=== PATIENT | female | born 1935 | race Caucasian/White ===

== ENCOUNTER 2016-10-30 07:41 | Emergency (ER) | payer OTHER ==
[~2016-10-30] VITALS: Ht 160 cm; Wt 90.7 kg
[~2016-10-30 07:41] MED LIST: ASPIR 8181 MG PO; ASPIRIN81 M1 PO; BACTRIM DS 8001 TA1 PO; CALTRATE 600 +1 TA1 PO; CEFADROXIL500 M1 PO; CENTRUM SILVER1 TA1 PO; CHROMIUM PICOLI1 TAB PO; CYCLOBENZAPRINE5 MG PO; FAMOTIDINE PO; GLEEVEC400 MG PO; GLUCOSAMINE500 MG PO; HUMALOG100 U/ML SC; HYDROCHLOROTH12.5 M2 PO; HYZAAR 12.5 MG-1 TA2 PO; HYZAAR 12.5 MG-1 TAB PO; KEFLEX500 MG PO; LANTUS100 U/ML SC; LASIX20 MG PO; LEVEMIR10 ML SC; LOSARTAN POTAS100 M1 PO; LOSARTAN POTASS1 TA6 PO; LOVASTATIN40 MG PO; MEVACOR20 MG PO; MICRO-K 1010 MEQ PO; NAPROSYN375 MG PO; ONGLYZA; ONGLYZA5 MG PO; POTASSIUM20 MEQ PO; PRILOSEC20 M2 PO; SYNTHROID,LEVO75 MCG PO; TRAMADOL50 MG PO; TYLENOL ARTHRI650 MG PO; Tobradex 0.3-0.15 ML OPH; VESICARE10 MG PO; ZETIA10 MG PO
[2016-10-30 08:22] LABS: BASO # 0.1 10*3/uL (0.0-0.1); BASO % 1.2 % (0.0-1.0); EOS # 0.2 10*3/uL (0.0-0.4); EOS % 5.6 % (1.0-4.0); HEMATOCRIT 30.9 % (37.0-47.0); HEMOGLOBIN 9.9 g/dl (12.0-16.0); LYMPH # 1.3 10*3/uL (1.3-4.4); LYMPH % 30.6 % (27.0-41.0); MEAN CELL VOLUME 88.8 fl (81.0-99.0); MEAN CORPUSCULAR HGB 28.4 pg (27.0-31.0); MEAN PLATELET VOLUME 11.5 fl (9.6-12.3); MONO # 0.4 10*3/uL (0.1-1.0); MONO % 10.5 % (3.0-9.0); NEUT # 2.1 10*3/uL (2.3-7.9); NEUT % 51.9 % (47.0-73.0); PLATELET COUNT AUTOMATED 208 10*3/uL (130-400); RED BLOOD COUNT 3.48 10*6/uL (4.10-5.10); RED CELL DISTRI WIDTH 13.8 % (0-14.5); WHITE BLOOD COUNT 4.1 10*3/uL (4.8-10.8)
[2016-10-30 08:38] LABS: INTERNATIONAL NORM RATIO 0.9 (2.0-3.5); PROTHROMBIN TIME 9.6 SECONDS (9.0-12.4)
[2016-10-30 08:40] LABS: ALBUMIN 3.3 gm/dl (3.1-4.5); BILIRUBIN, TOTAL 0.3 mg/dl (0.2-1.0); POTASSIUM 3.4 mmol/L (3.5-5.1); TOTAL PROTEIN 6.1 gm/dL (6.4-8.2)
[2016-10-30] MEDS ORDERED: IBUPROFEN600 MG PO (13:18)
[2016-12-26] MEDS ORDERED: LOSARTAN POTASS1 TA5 PO (16:50)
[2016-12-26] MEDS ORDERED: LEVEMIR10 ML SC (16:51)
[2016-12-26] MEDS ORDERED: ASPIRIN81 M1 PO (16:52)
[2016-12-26] MEDS ORDERED: HYDROCODONE BIT1 T11 PO (16:55)
== END 2016-10-30 13:24 | disposition home or self-care (01) ==
LOC: ED 07:41
PROVIDERS: Emergency Medicine
DX: R07.89 Other chest pain (principal); M25.511 Pain in right shoulder; R51 Headache; E11.9 Type 2 diabetes mellitus without complications; I10 Essential (primary) hypertension; Z91.041 Radiographic dye allergy status; Z88.6 Allergy status to analgesic agent; Z79.899 Other long term (current) drug therapy; Z79.4 Long term (current) use of insulin

== ENCOUNTER 2017-01-09 16:09 | Emergency (ER) | payer OTHER ==
[~2017-01-09] VITALS: Wt 100.2 kg
[~2017-01-09 16:09] MED LIST changes: +HYDROCODONE BIT1 T11 PO; +IBUPROFEN600 MG PO; +LOSARTAN POTASS1 TA5 PO
[2017-01-09 17:16] LABS: BASO % 0.5 % (0.0-1.0); EOS % 0.5 % (1.0-4.0); HEMATOCRIT 29.5 % (37.0-47.0); HEMOGLOBIN 9.6 g/dl (12.0-16.0); LYMPH # 0.9 10*3/uL (1.3-4.4); MEAN CELL VOLUME 85.3 fl (81.0-99.0); MEAN CORPUSCULAR HGB 27.7 pg (27.0-31.0); MEAN CORPUSCULAR HGB CONC 32.5 g/dl (33.0-37.0); MEAN PLATELET VOLUME 9.8 fl (9.6-12.3); MONO # 0.6 10*3/uL (0.1-1.0); MONO % 9.7 % (3.0-9.0); NEUT # 4.8 10*3/uL (2.3-7.9); NEUT % 75.1 % (47.0-73.0); PLATELET COUNT AUTOMATED 230 10*3/uL (130-400); RED BLOOD COUNT 3.46 10*6/uL (4.10-5.10); RED CELL DISTRI WIDTH 15.9 % (0-14.5); WHITE BLOOD COUNT 6.4 10*3/uL (4.8-10.8)
[2017-01-09 17:33] LABS: ALBUMIN 3.3 gm/dl (3.1-4.5); BILIRUBIN, TOTAL 0.5 mg/dl (0.2-1.0); POTASSIUM 3.8 mmol/L (3.5-5.1); TOTAL PROTEIN 6.4 gm/dL (6.4-8.2)
[2017-01-09 19:37] LABS: BILIRUBIN NEGATIVE (NEGATIVE); BLOOD 3+ (NEGATIVE); CLARITY SL CLOUDY (CLEAR); COLOR YELLOW (YELLOW); GLUCOSE NEGATIVE (NEGATIVE); KETONE 1+ (NEGATIVE); LEUKO ESTERASE NEGATIVE (NEGATIVE); NITRITE NEGATIVE (NEGATIVE); PH 5.5 (5.0-9.0); PROTEIN TRACE (NEGATIVE)
[2017-01-09 19:50] LABS: BACTERIA TRACE; EPITHELIAL CELLS 20-25; RBC TNTC rbc/hpf (0-2)
[2017-01-09 19:51] LABS: URINE REFLEX COMMENT YES (NO); WBC 0-2 wbc/hpf (0-5)
[2017-01-09] MEDS ORDERED: ZOFRAN ODT4 MG SL (20:04)
== END 2017-01-09 20:30 | disposition home or self-care (01) ==
LOC: ED 16:09
PROVIDERS: Physician Assistant
DX: N20.1 Calculus of ureter (principal); Z90.49 Acquired absence of other specified parts of digestive tract; Z79.4 Long term (current) use of insulin; Z79.82 Long term (current) use of aspirin; Z88.6 Allergy status to analgesic agent; Z91.041 Radiographic dye allergy status

== ENCOUNTER → 2017-08-07 | Outpatient (CLI) | payer OTHER ==
[~2017-08-07] MED LIST changes: +ZOFRAN ODT4 MG SL
[2017-08-07 11:34] LABS: IRON 41 ug/dL (50-170); TOTAL IRON BINDING CAPACITY 385 ug/dl (250-450)
[2017-08-07 13:07] LABS: FERRITIN 12.4 ng/mL (10.0-291.0)
== END | disposition home or self-care (01) ==
LOC: LAB 10:43
PROVIDERS: Internal Medicine
DX: E13.9 Other specified diabetes mellitus without complications (principal); R89.9 Unspecified abnormal finding in specimens from other organs, systems and tissues

== ENCOUNTER → 2018-01-09 | Outpatient (CLI) | payer OTHER | END | disposition home or self-care (01) | LOC: RAD 14:18 | DX: S22.32XA Fracture of one rib, left side, initial encounter for closed fracture (principal); W19.XXXA Unspecified fall, initial encounter; X58.XXXA Exposure to other specified factors, initial encounter; Y93.89 Activity, other specified; Y92.89 Other specified places as the place of occurrence of the external cause; Y99.8 Other external cause status ==

== ENCOUNTER 2019-01-13 08:16 | Emergency (ER) | payer OTHER ==
[~2019-01-13] VITALS: Ht 160 cm; Wt 90.7 kg
--- NOTE | ~2019-01-13 | EKG ---
[place], [place] ELECTROCARDIOGRAM REPORT NAME: GEORGETTE JUDD UNIT #: [id number] ROOM: DOCTOR: EPIPHANY DRAFT REPORT BIRTHDATE: [birth year] [facility] Test Date: 2019-01-13 Test Time: 08:23:08 Pat Name: GEORGETTE JUDD Department: Room: Gender: F Room Service Food Server: Ximena Salcedo : 1935 Requested By: HARSH WILDE Order Number: [id number] Reading MD: Zahraa Dominique Measurements Intervals Andrew Rate: 65 P: 0 CA: 205 QRS: -22 QRSD: 91 T: 29 QT: 443 QTc: 461 Interpretive Statements Sinus rhythm Ventricular premature complex Borderline left axis deviation Anterior infarct, old No previous ECG available for comparison Electronically Signed On 01-13-2019 11:07:27 PDT by Zahraa Dominique CM:EKGRPT:ELECTROCARDIOGRAM REPORT [id number] HARSH TRAYLOR DRAFT REPORT HARSH WILDE MD
[~2019-01-13 08:16] MED LIST changes: +LEVEMIR100 UNIT/1 SC
[2019-01-13 08:36] LABS: EOS # 0.2 10*3/uL (0.0-0.4); EOS % 5.3 % (1.0-4.0); HEMATOCRIT 37.9 % (37.0-47.0); HEMOGLOBIN 12.5 g/dl (12.0-16.0); LYMPH # 2.1 10*3/uL (1.3-4.4); LYMPH % 52.1 % (27.0-41.0); MEAN CORPUSCULAR HGB 29.3 pg (27.0-31.0); MEAN PLATELET VOLUME 10.5 fl (9.6-12.3); MONO # 0.4 10*3/uL (0.1-1.0); MONO % 10.6 % (3.0-9.0); NEUT # 1.2 10*3/uL (2.3-7.9); NEUT % 30.7 % (47.0-73.0); PLATELET COUNT AUTOMATED 196 10*3/uL (130-400); RED BLOOD COUNT 4.26 10*6/uL (4.10-5.10); RED CELL DISTRI WIDTH 13.7 % (0-14.5)
[2019-01-13 08:45] LABS: ACT PARTIAL THROMBO TIME 22.5 SECONDS (20.8-31.5); INTERNATIONAL NORM RATIO 0.9 (2.0-3.5)
[2019-01-13 09:02] LABS: ALBUMIN 3.4 gm/dl (3.1-4.5); CREATININE 1.23 mg/dL (0.55-1.02); POTASSIUM 3.4 mmol/L (3.5-5.1); TOTAL PROTEIN 6.8 gm/dL (6.4-8.2); TROPONIN I 0.017 ng/ml (<0.045)
[2019-03-15] MEDS ORDERED: NORVASC2.5 MG PO (11:19)
[2019-03-15] MEDS ORDERED: MELOXICAM7.5 MG PO (11:20)
[2019-03-15] MEDS ORDERED: LEVEMIR100 UNIT/1 SQ (12:05)
== END 2019-01-13 10:12 | disposition home or self-care (01) ==
LOC: ED 08:16
PROVIDERS: Emergency Medicine
DX: M54.41 Lumbago with sciatica, right side (principal); R53.1 Weakness; I10 Essential (primary) hypertension; E11.9 Type 2 diabetes mellitus without complications; Z91.041 Radiographic dye allergy status; Z88.6 Allergy status to analgesic agent; Z79.899 Other long term (current) drug therapy; Z79.82 Long term (current) use of aspirin

== ENCOUNTER → 2019-03-22 | Outpatient (CLI) | payer OTHER ==
[~2019-03-22] MED LIST changes: +LEVEMIR100 UNIT/1 SQ; +MELOXICAM7.5 MG PO; +NORVASC2.5 MG PO
== END | disposition home or self-care (01) ==
LOC: CANPRECLI → RESCLI
DX: I12.9 Hypertensive chronic kidney disease with stage 1 through stage 4 chronic kidney disease, or unspecified chronic kidney disease (principal); E11.22 Type 2 diabetes mellitus with diabetic chronic kidney disease; N18.3 Chronic kidney disease, stage 3 (moderate); M54.5 Low back pain; E03.9 Hypothyroidism, unspecified; M25.50 Pain in unspecified joint; C91.10 Chronic lymphocytic leukemia of B-cell type not having achieved remission; K21.9 Gastro-esophageal reflux disease without esophagitis; Z79.899 Other long term (current) drug therapy

== ENCOUNTER → 2019-05-24 | Outpatient (CLI) | payer OTHER | END | disposition home or self-care (01) | LOC: RESCLI 00:08 | DX: C92.11 Chronic myeloid leukemia, BCR/ABL-positive, in remission (principal); I12.9 Hypertensive chronic kidney disease with stage 1 through stage 4 chronic kidney disease, or unspecified chronic kidney disease; E11.22 Type 2 diabetes mellitus with diabetic chronic kidney disease; N18.3 Chronic kidney disease, stage 3 (moderate); M54.5 Low back pain; E03.9 Hypothyroidism, unspecified; E53.8 Deficiency of other specified B group vitamins; E66.9 Obesity, unspecified; Z79.4 Long term (current) use of insulin; Z79.899 Other long term (current) drug therapy ==

== ENCOUNTER → 2019-06-18 | Outpatient (CLI) | payer OTHER ==
[2019-06-18 12:46] LABS: BASO # 0.1 10*3/uL (0.0-0.1); BASO % 1.4 % (0.0-1.0); EOS # 0.3 10*3/uL (0.0-0.4); EOS % 7.7 % (1.0-4.0); HEMATOCRIT 35.8 % (37.0-47.0); HEMOGLOBIN 11.4 g/dl (12.0-16.0); LYMPH % 46.3 % (27.0-41.0); MEAN CELL VOLUME 90.2 fl (81.0-99.0); MEAN CORPUSCULAR HGB 28.7 pg (27.0-31.0); MEAN CORPUSCULAR HGB CONC 31.8 g/dl (33.0-37.0); MEAN PLATELET VOLUME 11.2 fl (9.6-12.3); MONO # 0.4 10*3/uL (0.1-1.0); MONO % 9.8 % (3.0-9.0); NEUT # 1.5 10*3/uL (2.3-7.9); NEUT % 34.6 % (47.0-73.0); PLATELET COUNT AUTOMATED 204 10*3/uL (130-400); RED BLOOD COUNT 3.97 10*6/uL (4.10-5.10); RED CELL DISTRI WIDTH 13.8 % (0-14.5); WHITE BLOOD COUNT 4.4 10*3/uL (4.8-10.8)
== END | disposition home or self-care (01) ==
LOC: LAB 11:41
PROVIDERS: Internal Medicine
DX: R21 Rash and other nonspecific skin eruption (principal)

== ENCOUNTER → 2019-07-26 | Outpatient (CLI) | payer OTHER ==
[2019-07-26 16:16] LABS: BASO # 0.1 10*3/uL (0.0-0.1); BASO % 1.2 % (0.0-1.0); EOS # 0.2 10*3/uL (0.0-0.4); EOS % 3.7 % (1.0-4.0); HEMATOCRIT 34.5 % (37.0-47.0); HEMOGLOBIN 11.2 g/dl (12.0-16.0); LYMPH # 1.5 10*3/uL (1.3-4.4); LYMPH % 35.1 % (27.0-41.0); MEAN CELL VOLUME 90.1 fl (81.0-99.0); MEAN CORPUSCULAR HGB 29.2 pg (27.0-31.0); MEAN CORPUSCULAR HGB CONC 32.5 g/dl (33.0-37.0); MEAN PLATELET VOLUME 10.6 fl (9.6-12.3); MONO # 0.4 10*3/uL (0.1-1.0); NEUT # 2.1 10*3/uL (2.3-7.9); NEUT % 49.8 % (47.0-73.0); PLATELET COUNT AUTOMATED 247 10*3/uL (130-400); RED BLOOD COUNT 3.83 10*6/uL (4.10-5.10); RED CELL DISTRI WIDTH 14.1 % (0-14.5); WHITE BLOOD COUNT 4.3 10*3/uL (4.8-10.8)
[2019-07-26 16:34] LABS: ALBUMIN 3.1 gm/dl (3.1-4.5); CREATININE 1.36 mg/dL (0.55-1.02); POTASSIUM 3.4 mmol/L (3.5-5.1); TOTAL PROTEIN 6.1 gm/dL (6.4-8.2)
== END | disposition home or self-care (01) ==
LOC: RESCLI 00:30
PROVIDERS: Student in an Organized Health Care Education/Training Program
DX: Z23 Encounter for immunization (principal); M25.552 Pain in left hip; G89.29 Other chronic pain; R26.2 Difficulty in walking, not elsewhere classified; E13.9 Other specified diabetes mellitus without complications; E03.9 Hypothyroidism, unspecified; I10 Essential (primary) hypertension; C92.11 Chronic myeloid leukemia, BCR/ABL-positive, in remission; K21.9 Gastro-esophageal reflux disease without esophagitis; M54.5 Low back pain; E55.9 Vitamin D deficiency, unspecified; Z79.1 Long term (current) use of non-steroidal anti-inflammatories (NSAID); Z79.4 Long term (current) use of insulin; Z79.899 Other long term (current) drug therapy

== ENCOUNTER → 2019-08-09 | Outpatient (CLI) | payer OTHER | END | disposition home or self-care (01) | LOC: RESCLI 01:41 → ORTHO 19:54 → RESCLI 19:56 | DX: E03.9 Hypothyroidism, unspecified (principal); E11.9 Type 2 diabetes mellitus without complications; I10 Essential (primary) hypertension; C92.11 Chronic myeloid leukemia, BCR/ABL-positive, in remission; K21.9 Gastro-esophageal reflux disease without esophagitis; M25.551 Pain in right hip; Z79.899 Other long term (current) drug therapy ==

== ENCOUNTER 2020-04-21 17:34 | Emergency (ER) | payer OTHER ==
[~2020-04-21] VITALS: Ht 160 cm; Wt 72.6 kg
[2020-04-21 19:01] LABS: BASO % 0.4 % (0.0-1.0); EOS # 0.1 10*3/uL (0.0-0.4); EOS % 1.8 % (1.0-4.0); HEMATOCRIT 35.7 % (37.0-47.0); LYMPH # 2.3 10*3/uL (1.3-4.4); MEAN CELL VOLUME 80.6 fl (81.0-99.0); MEAN CORPUSCULAR HGB 26.9 pg (27.0-31.0); MEAN CORPUSCULAR HGB CONC 33.3 g/dl (33.0-37.0); MEAN PLATELET VOLUME 10.9 fl (9.6-12.3); MONO # 0.4 10*3/uL (0.1-1.0); MONO % 7.7 % (3.0-9.0); NEUT # 2.6 10*3/uL (2.3-7.9); NEUT % 47.7 % (47.0-73.0); PLATELET COUNT AUTOMATED 252 10*3/uL (130-400); RED BLOOD COUNT 4.43 10*6/uL (4.10-5.10); RED CELL DISTRI WIDTH 13.2 % (0-14.5); WHITE BLOOD COUNT 5.5 10*3/uL (4.8-10.8)
[2020-04-21 19:16] LABS: CREATININE 1.52 mg/dL (0.55-1.02); POTASSIUM 3.7 mmol/L (3.5-5.1); TOTAL PROTEIN 6.5 gm/dL (6.4-8.2)
[2020-04-21 19:45] LABS: BILIRUBIN NEGATIVE (NEGATIVE); BLOOD NEGATIVE (NEGATIVE); CLARITY CLEAR (CLEAR); COLOR YELLOW (YELLOW); GLUCOSE 3+ (NEGATIVE); KETONE NEGATIVE (NEGATIVE); LEUKO ESTERASE NEGATIVE (NEGATIVE); NITRITE NEGATIVE (NEGATIVE); SPECIFIC GRAVITY 1.005 (1.005-1.030); UROBILINOGEN 0.2 E.U./dl (0.2-1.0)
[2020-04-21 19:47] LABS: BACTERIA 3+
== END 2020-04-21 21:00 | disposition left against medical advice (07) ==
LOC: ED 17:34
PROVIDERS: Emergency Medicine
DX: G45.9 Transient cerebral ischemic attack, unspecified (principal); Z91.041 Radiographic dye allergy status; Z88.8 Allergy status to other drugs, medicaments and biological substances; Z79.899 Other long term (current) drug therapy; Z79.4 Long term (current) use of insulin

== ENCOUNTER → 2020-07-22 | Outpatient (CLI) | payer OTHER ==
[~2020-07-22] MED LIST changes: +BUMETANIDE1 MG PO; +BUSPAR5 MG PO; +DONEPEZIL HCL10 MG PO; +LOSARTAN-HCTZ1 EAC2 PO
[2020-07-22 10:48] LABS: BASO % 0.7 % (0.0-1.0); EOS # 0.1 10*3/uL (0.0-0.4); EOS % 1.8 % (1.0-4.0); HEMATOCRIT 37.1 % (37.0-47.0); LYMPH # 2.8 10*3/uL (1.3-4.4); MEAN CELL VOLUME 82.4 fl (81.0-99.0); MEAN CORPUSCULAR HGB 26.9 pg (27.0-31.0); MEAN CORPUSCULAR HGB CONC 32.6 g/dl (33.0-37.0); MEAN PLATELET VOLUME 10.8 fl (9.6-12.3); MONO # 0.5 10*3/uL (0.1-1.0); MONO % 8.9 % (3.0-9.0); NEUT # 2.6 10*3/uL (2.3-7.9); NEUT % 42.4 % (47.0-73.0); PLATELET COUNT AUTOMATED 312 10*3/uL (130-400); RED CELL DISTRI WIDTH 13.2 % (0-14.5); WHITE BLOOD COUNT 6.1 10*3/uL (4.8-10.8)
[2020-07-22 10:57] LABS: BILIRUBIN Negative (Negative); BLOOD Negative (Negative); CLARITY Cloudy (Clear); COLOR Dark Yellow (Yellow); GLUCOSE Negative (Negative); KETONE Negative (Negative); LEUKO ESTERASE 2+ (Negative); NITRITE Positive (Negative); PH 5.5 (4.5-8.0)
[2020-07-22 11:05] LABS: BACTERIA 3+; WBC 51-100 wbc/hpf (0-5)
[2020-07-22 11:23] LABS: ALBUMIN 3.1 gm/dl (3.1-4.5); CREATININE 1.07 mg/dL (0.55-1.02); FREE T4 1.23 ng/dl (0.76-1.46); POTASSIUM 3.2 mmol/L (3.5-5.1); TOTAL PROTEIN 6.3 gm/dL (6.4-8.2)
[2020-07-22 11:28] LABS: THYROID STIM HORMONE (HS) 1.12 uIU/ml (0.358-4.75)
[2020-07-23 11:07] LABS: CREATININE,URINE 176.2 mg/dL (Not Estab.)
== END | disposition home or self-care (01) ==
LOC: LAB 03:50
PROVIDERS: ATTEND Family Medicine
DX: E11.9 Type 2 diabetes mellitus without complications (principal); I10 Essential (primary) hypertension; F03.90 Unspecified dementia, unspecified severity, without behavioral disturbance, psychotic disturbance, mood disturbance, and anxiety; R82.90 Unspecified abnormal findings in urine

== ENCOUNTER 2020-07-24 16:33 | Inpatient (IN) | payer OTHER ==
[~2020-07-24] VITALS: Ht 160 cm; Wt 73.2 kg
[~2020-07-24 16:33] MED LIST changes: -BUMETANIDE1 MG PO; -BUSPAR5 MG PO; -DONEPEZIL HCL10 MG PO; -LOSARTAN-HCTZ1 EAC2 PO
[2020-07-24 16:37] VITALS: BP 110/41
[2020-07-24 17:08] LABS: HEMATOCRIT 37.7 % (37.0-47.0); MEAN CELL VOLUME 82.3 fl (81.0-99.0); MEAN CORPUSCULAR HGB 27.1 pg (27.0-31.0); MEAN CORPUSCULAR HGB CONC 32.9 g/dl (33.0-37.0); MEAN PLATELET VOLUME 10.4 fl (9.6-12.3); PLATELET COUNT AUTOMATED 259 10*3/uL (130-400); RED BLOOD COUNT 4.58 10*6/uL (4.10-5.10); RED CELL DISTRI WIDTH 13.5 % (0-14.5); WHITE BLOOD COUNT 7.5 10*3/uL (4.8-10.8)
[2020-07-24 17:18] LABS: ACT PARTIAL THROMBO TIME 23.9 SECONDS (20.0-32.1); INTERNATIONAL NORM RATIO 0.9 (2.0-3.5)
[2020-07-24 17:24] LABS: ALBUMIN 2.9 gm/dl (3.1-4.5); CREATININE 1.37 mg/dL (0.55-1.02); POTASSIUM 3.9 mmol/L (3.5-5.1); TOTAL PROTEIN 6.6 gm/dL (6.4-8.2); TROPONIN I 0.022 ng/ml (<0.045)
[2020-07-24 17:41] LABS: BASOPHILS 2 % (0-1); TOTAL CELLS COUNTED 100 #CELLS
[2020-07-24 17:42] LABS: PLATELET SUFFICIENCY NORMAL (NORMAL)
[2020-07-24 20:10] VITALS: BP 128/40
--- NOTE | 2020-07-24 20:10 | NUR ---
A 85, admitted to , under the services of CANDACE Alejandro DO with a diagnosis of SYNCOPE GENERAL WEAKNESS. Chief complaint is FATIGUE. Patient arrived via stretcher from ER. Monitor applied. Initial assessment completed. Vital signs taken and recorded. CANDACE ALEJANDRO DO notified of admission to the unit. Orders received. See assessment for past medical history, medications and allergies. Patient and/or family oriented to unit. [facility]TH FLOOR visitation policy reviewed. Clothing/patient valuable form completed. ELPIDIO VINES
--- NOTE | 2020-07-24 20:12 | NUR ---
PATIENT PULSE OX 90-91% ON RA. PLACED ON 2LITERS NC. PULSE OX WITH 2L IS NOW 94%. WILL CONTINUE TO MONITOR.
--- NOTE | 2020-07-24 20:30 | NUR ---
UNABLE TO DO ORTHOS ON PATIENT AT THIS TIME. PATIENT VERY DROWSY, UNABLE TO STAY AWAKE DURING ASSESSMENT. PER DR. BARLOW OKAY TO HOLD OFF ON ORTHOS UNTIL THE PATIENT IS FEELING BETTER AND MORE ALERT.
--- NOTE | 2020-07-24 20:38 | NUR ---
NOTIFIED DR. BARLOW OF PATIENTS RECTAL TEMPERATURE OF 103.0. TOLD TO GIVE PO TYLELNOL. ASKED TO PLACE PATIENT ON COOLING BLANKET. PER DR. BARLOW JUST GIVE TYLENOL FOR NOW.
--- NOTE | 2020-07-24 21:00 | NUR ---
PATIENT MEDICATED WITH PRN TYLENOL FOR A TEMP OF 103. WILL CHECK EFFECTIVENESS.
[2020-07-24] MEDS ORDERED: DONEPEZIL HCL10 MG PO (23:28)
[2020-07-24] MEDS ORDERED: BUMETANIDE1 MG PO (23:29)
[2020-07-24] MEDS ORDERED: BUSPAR5 MG PO (23:29)
[2020-07-24] MEDS ORDERED: LOSARTAN-HCTZ1 EAC2 PO (23:30)
[2020-07-25] VITALS (7 sets, daily range): BP systolic 88–138; BP diastolic 30–58
--- NOTE | 2020-07-25 01:41 | NUR ---
NOTIFIED DR. BARLOW OF CRITICAL TROPONIN, 0.066. NO NEW ORDERS RECEIVED. WILL CONTINUE TO MONITOR.
--- NOTE | 2020-07-25 02:00 | NUR ---
TYLENOL GIVEN FOR PATIENTS FEVER. WILL RECHECK TEMPERATURE.
--- NOTE | 2020-07-25 02:04 | NUR ---
PATIENT SHRIVERING, WARM TO TOUCH. TYMPANIC TEMPERATURE 101.2. TYLENOL GIVEN AGAIN AT THIS TIME. ALL OTHER VITALS STABLE. WILL CONTINUE TO MONITOR.
--- NOTE | 2020-07-25 02:31 | NUR ---
DR. BARLOW CALLED BACK AND STATED TO PLACE PATIENT ON A COOLING BLANKET.
--- NOTE | 2020-07-25 02:57 | NUR ---
COOLING BLANKET PLACED UNDER PATIENT AT THIS TIME. CONTINOUS RECTAL PROBE PLACED. PATIENT RECTAL TEMPERATURE IS 102.6. WILL CONTINUE TO MONITOR.
--- NOTE | 2020-07-25 06:00 | NUR ---
PATIENTS COOLING BLANKET TURNED OFF AT THIS TIME. PATIENT TEMPERATURE IS NOW 98.6.
[2020-07-25 06:39] LABS: BASO % 0.4 % (0.0-1.0); EOS % 0.4 % (1.0-4.0); HEMATOCRIT 33.8 % (37.0-47.0); LYMPH # 0.3 10*3/uL (1.3-4.4); LYMPH % 5.5 % (27.0-41.0); MEAN CELL VOLUME 83.5 fl (81.0-99.0); MEAN CORPUSCULAR HGB 27.2 pg (27.0-31.0); MEAN CORPUSCULAR HGB CONC 32.5 g/dl (33.0-37.0); MEAN PLATELET VOLUME 10.3 fl (9.6-12.3); MONO # 0.2 10*3/uL (0.1-1.0); MONO % 4.3 % (3.0-9.0); NEUT # 4.4 10*3/uL (2.3-7.9); NEUT % 88.8 % (47.0-73.0); PLATELET COUNT AUTOMATED 201 10*3/uL (130-400); RED BLOOD COUNT 4.05 10*6/uL (4.10-5.10); RED CELL DISTRI WIDTH 13.6 % (0-14.5); WHITE BLOOD COUNT 4.9 10*3/uL (4.8-10.8)
[2020-07-25 06:59] LABS: ALBUMIN 2.3 gm/dl (3.1-4.5); CREATININE 1.38 mg/dL (0.55-1.02); FREE T4 1.15 ng/dl (0.76-1.46); POTASSIUM 3.7 mmol/L (3.5-5.1); TOTAL PROTEIN 5.6 gm/dL (6.4-8.2)
[2020-07-25 07:04] LABS: THYROID STIM HORMONE (HS) 0.242 uIU/ml (0.358-4.75)
--- NOTE | 2020-07-25 07:10 | NUR ---
NOTIFIED DR. OVERTON OF CRITICAL TROPONIN OF 0.074. NO NEW ORDERS RECEIVED. WILL CONTINUE TO MONITOR.
[2020-07-25 07:50] LABS: VITAMIN D, 25-HYDROXY 20.1 ng/mL (30-100)
--- NOTE | 2020-07-25 08:00 | NUR ---
IN TO ROOM. PATIENT AWAKE, ALERT AND ORIENTED SITTING UP IN BED. PT IS ON THE PHONE AT THIS TIME BUT HAS NO STATED COMPLAINTS. RESPIRATIONS ARE EASY AND REGULAR. NO DISTRESS NOTED. 2L NASAL CANNULA INTACT. BED IN LOWEST LOCKED POSITION AND CALL LIGHT WITHIN REACH. EDUCATED PROVIDED ON HOW TO ORDER BREAKFAST. WILL CONTINUE TO MONITOR.
--- NOTE | 2020-07-25 10:40 | NUR ---
DR. PERRIN'S ANSWERING SERVICE NOTIFIED OF CONSULT.
--- NOTE | 2020-07-25 11:29 | NUR ---
Autism Teacher in to talk with Pt. this a.m. Pt. is Oriented but Forgetful. Pt. states that she lives at home alone and her daughters provide assistance when needed.There are 15 Steps in the Home but Pt. has a Chair Lift to the upstairs. Pt. Primary Care Physician is Dr. Villegas. Pharmacy is [email or web address] in [place]. Pt. Currently is no active with Home Health Services but is receptive to Home Health and first Choice is [facility] when Provided List for Home Health Agencies. Pt. states he Prior Level of ADL's was independent and she did fairly well but has had increased weakness and Syncope over the last two weeks. Pt. has all of her Utlities working in the home currently. She uses a Cane to Ambulate and her Lift Chair. Follow up appointments at discharge Per the Hospitalist office. Pt. Declines access to the Portal due to no Computer. Discharge Plan at this time is Pt. would like to return home and have home health but is receptive to SNF stay with [facility] if she requires SNF stay due to Increased Weakness. Case Management will Follow. MELL PÉREZ LPN, BRANCH SALES MANAGER.
--- NOTE | 2020-07-25 12:56 | NUR ---
DR. LANDERS NOTIFIED OF CRITICAL TROPONIN OF 0.060.
[2020-07-25 15:40] LABS: BILIRUBIN 1+ (Negative); BLOOD Negative (Negative); CLARITY Clear (Clear); COLOR Dark Yellow (Yellow); GLUCOSE 3+ (Negative); KETONE Negative (Negative); LEUKO ESTERASE Negative (Negative); NITRITE Negative (Negative); SPECIFIC GRAVITY 1.025 (1.001-1.030)
[2020-07-25 16:16] LABS: BACTERIA 1+
--- NOTE | 2020-07-25 19:30 | NUR ---
PT RESTING IN BED. VOICES NO CONCERNS AT THIS TIME. RESPS EASY AND NON LABORED. NO S/S OF DISTRESS NOTED. VSS-BP BEEN RUNNING ON LOWER SIDE.WHITE BOARD UPDATED. POC DISCUSSED W PT. A/O X3. PT EXTREMELY FATIGUED. STATES SHE IS SOB W EXERTION. 2L NC INTACT. TRACE BLE EDEMA NOTED. WILL CONTINUE TO MONITOR. CALL LIGHT WITHIN REACH. BED ALARM ON.
--- NOTE | 2020-07-25 22:12 | NUR ---
PTS BP MANUALLY 88/30. DR LUGO NOTIFIED. NO NEW ORDERS AT THIS TIME. STATES TO RE-CHECK IN AN HOUR OR TWO. PT STATING SHE JUST FEELS VERY TIRED. WILL CONTINUE TO MONITOR.
--- NOTE | 2020-07-25 22:12 | NUR ---
DR LUGO AWARE PT HEART RATE DIPPING INTO THE 50'S
--- NOTE | 2020-07-25 23:00 | NUR ---
IVF INFUSING W/O INCIDENT. PT STILL STATES SHE IS VERY TIRED. VERIFIED CODE STATUS-PT STATES SHE WANTS "EVERYTHING DONE"
[2020-07-26] VITALS (8 sets, daily range): BP systolic 92–126; BP diastolic 44–52
--- NOTE | 2020-07-26 01:16 | NUR ---
24 HR chart check completed.
--- NOTE | 2020-07-26 04:09 | NUR ---
Patient sleeping. Respirations relaxed and easy. Siderails up . [place] on. [place],SUNDAY
[2020-07-26 06:22] LABS: ALBUMIN 2.2 gm/dl (3.1-4.5); CREATININE 1.45 mg/dL (0.55-1.02); POTASSIUM 3.4 mmol/L (3.5-5.1); TOTAL PROTEIN 5.4 gm/dL (6.4-8.2)
--- NOTE | 2020-07-26 06:28 | NUR ---
DR LUGO AWARE OF PTS HEART RHYTHM AND THAT RATE IS DIPPING INTO THE 40'S. ALSO AWARE OF LATEST BP 106/52
[2020-07-26 06:29] LABS: HEMATOCRIT 29.7 % (37.0-47.0); MEAN CELL VOLUME 83.2 fl (81.0-99.0); MEAN CORPUSCULAR HGB 27.5 pg (27.0-31.0); PLATELET COUNT AUTOMATED 176 10*3/uL (130-400); RED BLOOD COUNT 3.57 10*6/uL (4.10-5.10); RED CELL DISTRI WIDTH 13.8 % (0-14.5); WHITE BLOOD COUNT 3.2 10*3/uL (4.8-10.8)
--- NOTE | 2020-07-26 06:42 | NUR ---
PTS BLOOD SUGAR 78. ASYMPTOMATIC. GIVEN 2 CONTAINERS OF ORANGE JUICE. PT STATES THAT IS ON THE LOW SIDE FOR HER.
[2020-07-26 07:33] LABS: BASOPHILS 1 % (0-1); PLATELET SUFFICIENCY NORMAL (NORMAL); TOTAL CELLS COUNTED 100 #CELLS
[2020-07-26 10:33] LABS: ABG BASE EXCESS 2.4 mmol/L (-2.0-2.0); ARTERIAL BLOOD GAS PH 7.448 (7.35-7.45)
--- NOTE | 2020-07-26 20:29 | NUR ---
TYLENOL GIVEN FOR C/O HEADACHE, ZOFRAN GIVEN FOR C/O NAUSEA. WILL MONITOR
--- NOTE | 2020-07-26 21:29 | NUR ---
PATIENT RESTING IN BED WITH EYES CLOSED. RESPS EASY AND REGULAR ON ROOM AIR. MEDICATION SEEMS EFFECTIVE
--- NOTE | 2020-07-26 23:57 | NUR ---
24 HR chart check completed.
[2020-07-27] VITALS: BP 116/50
--- NOTE | 2020-07-27 00:46 | NUR ---
PATIENT RESTING IN BED WITH NO S/S OF DISTRESS. BED IN LOWEST POSITION, CALL LIGHT IN REACH
[2020-07-27 06:16] LABS: BASO % 0.3 % (0.0-1.0); HEMATOCRIT 33.4 % (37.0-47.0); LYMPH # 0.8 10*3/uL (1.3-4.4); LYMPH % 27.1 % (27.0-41.0); MEAN CELL VOLUME 83.1 fl (81.0-99.0); MEAN CORPUSCULAR HGB 27.1 pg (27.0-31.0); MEAN CORPUSCULAR HGB CONC 32.6 g/dl (33.0-37.0); MEAN PLATELET VOLUME 11.5 fl (9.6-12.3); MONO # 0.2 10*3/uL (0.1-1.0); MONO % 8.2 % (3.0-9.0); NEUT # 1.9 10*3/uL (2.3-7.9); NEUT % 64.1 % (47.0-73.0); PLATELET COUNT AUTOMATED 210 10*3/uL (130-400); RED BLOOD COUNT 4.02 10*6/uL (4.10-5.10); RED CELL DISTRI WIDTH 13.5 % (0-14.5); WHITE BLOOD COUNT 2.9 10*3/uL (4.8-10.8)
[2020-07-27 06:23] LABS: ALBUMIN 2.4 gm/dl (3.1-4.5)
[2020-07-27 06:27] LABS: CREATININE 1.49 mg/dL (0.55-1.02)
[2020-07-27 06:56] LABS: POTASSIUM 4.7 mmol/L (3.5-5.1)
--- NOTE | 2020-07-27 07:00 | NUR ---
ARRIVED ON SHIFT,REPORT RECEIVED FROM OFFGOING NURSE, ASSUMED CARE OF PATIENT.
--- NOTE | 2020-07-27 07:49 | NUR ---
PHYSICAL THERAPY Screen and PT eval received will follow thank you Annie Umana PT
[2020-07-27 08:00] VITALS: BP 121/41
--- NOTE | 2020-07-27 08:00 | NUR ---
INTRODUCED SELF TO PATIENT, BED IN LOW POSITION WHEEL LOCKS ENGAGED, SIDE RAILS UP X 2 FOR TURNING AND REPOSITIONING, CALL LIGHT WITHIN REACH,NO NEEDS VOICED AT THIS TIME, WHITE BOARD UPDATED.
--- NOTE | 2020-07-27 08:58 | NUR ---
PHYSICAL THERAPY Attempted to see pt for PT evaluation spoke with nursing prior to seeing as COVID status/test result was negative per lab results but awaiting MD assessment orders reg isolation status will follow Annie Umana PT
--- NOTE | 2020-07-27 09:00 | NUR ---
Occupational Therapy evaluation attempted. Covid testing/isolation precautions pending before OT evaluation. Awaiting MD orders. Thank you. Jane Callejas OTR/l
--- NOTE | 2020-07-27 11:03 | NUR ---
CM spoke to patient via phone. Discussed home health care services vs [facility] and she would like to go to [facility]. media planner / buyer notified.
--- NOTE | 2020-07-27 11:45 | NUR ---
Patient requesting a referral to [facility], contacted facility and faxed referral. waiting on review/acceptance
[2020-07-27 12:00] VITALS: BP 127/45
--- NOTE | 2020-07-27 13:22 | NUR ---
Shift chart check completed.
--- NOTE | 2020-07-27 13:40 | NUR ---
PHYSICAL THERAPY Physical Therapy evaluation completed on 4th floor with full evaluation to follow. Recommend physical therapy per plan of care and SNF upon discharge. Thank you for this referral. Annie Umana PT
--- NOTE | 2020-07-27 13:45 | NUR ---
Occupational Therapy evaluation completed on FOUR with full evaluation to follow. Recommend occupational therapy per plan of care and SNF upon discharge. Thank you for this referral. Radha Jeffers OTR/L
--- NOTE | 2020-07-27 13:55 | NUR ---
Called into patient's room to see who her PCP is as she hasn't seen the resident clinic in over a year per hospitalist nurse director. Patient states she sees Lawanda Mora. Notified hospitalist nurse director.
--- NOTE | 2020-07-27 15:54 | NUR ---
Nursing screen received and Occupational Therapy referral received. Thank you. Jane Callejas OTR/l
[2020-07-27 16:00] VITALS: BP 145/85
[2020-07-27 20:00] VITALS: BP 103/39
--- NOTE | 2020-07-27 20:30 | NUR ---
SPOKE WITH YOLANDA IN LAB. SHE STATES THAT THE [facility] SWAB WILL NOT EVEN GO OUT UNTIL TOMORROW AFTERNOON, AND THAT A DOCTOR USUALLY HAS TO CALL AND HAVE IT APPROVED. SHE STATES THAT THEY ARE CLOSED TONIGHT, SO THE [facility] PAPER WILL HAVE TO BE COMPLETED TOMORROW.
--- NOTE | 2020-07-27 20:51 | NUR ---
MEDICATED WITH PRN TYLENOL FOR C/O HEADACHE
--- NOTE | 2020-07-27 21:51 | NUR ---
MEDICATION EFFECTIVE PER PATIENT
[2020-07-28] VITALS: BP 117/60
--- NOTE | 2020-07-28 05:38 | NUR ---
DR OVERTON AWARE OF BLOOD SUGAR 69. STATES OK TO GIVE DEXTROSE.
--- NOTE | 2020-07-28 05:42 | NUR ---
DEXTROSE GIVEN PER ORDER FOR BLOOD SUGAR OF 69. PATIENT NPO AT THIS TIME
--- NOTE | 2020-07-28 06:07 | NUR ---
ZOFRAN GIVEN FOR C/O NAUSEA. WILL MONITOR
--- NOTE | 2020-07-28 06:15 | NUR ---
BLOOD SUGAR RECHECK 197
[2020-07-28 06:18] LABS: BASO % 0.6 % (0.0-1.0); EOS # 0.2 10*3/uL (0.0-0.4); EOS % 3.5 % (1.0-4.0); LYMPH # 1.7 10*3/uL (1.3-4.4); MEAN CELL VOLUME 82.4 fl (81.0-99.0); MEAN CORPUSCULAR HGB 27.7 pg (27.0-31.0); MEAN CORPUSCULAR HGB CONC 33.5 g/dl (33.0-37.0); MEAN PLATELET VOLUME 11.2 fl (9.6-12.3); MONO # 0.6 10*3/uL (0.1-1.0); MONO % 12.7 % (3.0-9.0); NEUT # 2.3 10*3/uL (2.3-7.9); NEUT % 47.8 % (47.0-73.0); PLATELET COUNT AUTOMATED 221 10*3/uL (130-400); RED BLOOD COUNT 3.76 10*6/uL (4.10-5.10); RED CELL DISTRI WIDTH 13.8 % (0-14.5); WHITE BLOOD COUNT 4.8 10*3/uL (4.8-10.8)
[2020-07-28 06:42] LABS: ALBUMIN 2.2 gm/dl (3.1-4.5); CREATININE 1.18 mg/dL (0.55-1.02); TOTAL PROTEIN 5.7 gm/dL (6.4-8.2)
[2020-07-28 06:46] LABS: POTASSIUM 3.6 mmol/L (3.5-5.1)
[2020-07-28 08:00] VITALS: BP 127/49; BP 127/69
--- NOTE | 2020-07-28 09:51 | NUR ---
Spoke with patients daughter Nancy Gonzalez who is her HPOA. She stated she only wanted patient referred to [facility], however, patients insurance in not in network with any of the [facility] facilities. She does not want patient going to [facility]. Patient is to be discharged to home where her daughter Isabell will be caring for her. She also asked for home health via [facility], nursing, PT/OT, aides.
[2020-07-28 11:13] LABS: BILIRUBIN Negative (Negative); BLOOD Negative (Negative); CLARITY Clear (Clear); COLOR Yellow (Yellow); GLUCOSE Negative (Negative); KETONE Negative (Negative); LEUKO ESTERASE Negative (Negative); NITRITE Negative (Negative); PH 5.5 (4.5-8.0); SPECIFIC GRAVITY 1.015 (1.001-1.030)
--- NOTE | 2020-07-28 11:34 | NUR ---
Spoke to daughter, Nancy, regarding short term rehab vs home health. She states no rehab. She wants to take her home and her sister (the patient's daughter) will stay with her 24 hours a day along with OV services. Spoke to Dr. Parrish regarding OD COVID test. She states to let the primary team know. Hospitalist nurse director notified. Per Nancy Director of Lab states [facility] use the same methodology.
--- NOTE | 2020-07-28 11:35 | NUR ---
PHOTOGRAPH DEVELOPER RECEIVED DPOA-HC. PHOTOGRAPH DEVELOPER PLACED THIS ON THE PATIENTS CHART.
[2020-07-28 11:37] LABS: BACTERIA 1+; MUCOUS 1+
[2020-07-28 11:38] LABS: YEAST 1+
[2020-07-28 12:00] VITALS: BP 147/53
--- NOTE | 2020-07-28 13:45 | NUR ---
Faxed home health referral to [facility]
--- NOTE | 2020-07-28 13:45 | NUR ---
PHYSICAL THERAPY TREATMENT TIME: IN 1:10 PM - 1:35 PM 25 MINUTES PRESENTATION: Patient presented to therapy in Isolation room in [facility] Patient was in supine in bed with head of bed elevated O2 SAT = 98% PULSE= 57 - 62 Patient's bed alarm was not on Patient was identified by name and on wristband Patient gives informed consent for treatment COMPLAINTS: No complaints of pain Patient has Dizziness WB STATUS: No wt bearing restrictions ASSISTIVE DEVICE: Wh Walker TRANSFERS: Supine <> sit on EOB: SBA STS <> EOB: CGA STS from commode: CGA TREATMENT: Patient ambulated 15' x 2 with Walker and CGA Verbal cues for upright posture, pushing down on Walker with hands and staying within GEOVANNI of Wh Walker. RESPONSE TO TREATMENT: Patient's O2 SAT was recorded as 98% and pulse at 102 post ambulating and transfers. LYDIA Le was present in room as witness to this patient treatment. Patient has no dizziness post therapy session. CONCLUSION: Patient was left in supine in bed with head of bed elevated Call light within reach Tray table near patient Phone near patient DANIEL CORBETT PTA
--- NOTE | 2020-07-28 13:45 | NUR ---
OT NOTE Prior to start of session spoke with pt's nurse who reported that pt was okay to be seen at this time. Pt was seen this P.M. 1:1 for 30 minute OT session. Upon arrival pt was supine in bed. Pt identified by name and and had no complaints at this time other than generalized weakness. Pt's resting SpO2 read 98% and heart rate 57 bpm. Pt transferred supine to sit EOB with SBA. While sitting EOB pt donned B socks with SBA. AROM completed to BUE over all planes for 1 X 10 to increase and restore maximum functional use. Sit to stand completed from bed level with CGA and use of w/w for UE support. Challenged pt's static standing tolerance needed for increased I in self care tasks and functional transfers. Pt was able to tolerate aprox 4 minutes at a time before sitting due to fatigue. After a seated rest break pt then completed functional mobility into the bathroom with CGA and use of w/w. Throughout pt required min verbal prompts for walker safety due to staying unsafe distance from the walker increasing risk of falls. There she transferred on/off standard commode with CGA. Functional mobility completed back to the EOB, SpO2 reading 95% and heart rate 61 bpm, Once rested pt's dynamic standing balance was challenged while weight shifting, crossing midline, and reaching over all planes. Pt was able to maintain F/F- standing balance throughout. Pt then transferred back into bed sit to supine with SBA. There she was left with call light in hand, tray table in place, and phone in reach. Continue with POC as able. Throughout entire session airborne precautions were maintained/followed. SAMMY Hurst
--- NOTE | 2020-07-28 14:30 | NUR ---
Daughter, Nancy, is wishing for patient to be discharged today with home health care services. She states Dr. Parrish told her yesterday the patient could be discharged. Spoke to Dr. Mccallum, Dr. Sims, and Dr. Reddy regarding daughter's request to take the patient home. Daughter states there are 4 daughters that are going to pitch in and help. Someone will be with the patient 24 hours a day.
[2020-07-28 16:00] VITALS: BP 117/81
[2020-07-28] MEDS ORDERED: LEVOFLOXACIN500 MG PO (16:11)
[2020-07-28] MEDS ORDERED: AZITHROMYCIN500 M2 PO (16:11)
--- NOTE | 2020-07-28 16:36 | NUR ---
OCCUPATIONAL THERAPY CO-SIGN I approve of the Occupational Therapy notes written above. LEONA ZAMUDIO, OTR/L
--- NOTE | 2020-07-28 18:00 | NUR ---
Discharge instructions reviewed with patient/family. Patient receptive and verbalizes understanding. Follow-up care arranged. Written instructions given to patient/family.IV REMOVED, TAKEN OUT VIA W/C BY HOSPITAL PA. UBALDO AVENDAÑO
--- NOTE | 2020-07-29 07:08 | NUR ---
Faxed discharge instructions and summary to [facility]
--- NOTE | 2020-07-29 07:43 | NUR ---
PHYSICAL THERAPY CO-SIGN I approve of the Physical Therapy notes written above. Annie Umana PT
== END 2020-07-28 19:05 | disposition home health service (06) | DRG 871 ==
LOC: ED 16:33 → 4E 18:18 → EDHOLD 18:18 → 5E 18:53 → 4E 07-25 10:40
PROVIDERS: Emergency Medicine; Hospitalist; Internal Medicine; Student in an Organized Health Care Education/Training Program; ADMIT Family Medicine; ATTEND Family Medicine
DX: A41.9 Sepsis, unspecified organism (principal); J18.9 Pneumonia, unspecified organism; N17.0 Acute kidney failure with tubular necrosis; E43 Unspecified severe protein-calorie malnutrition; I24.8 Other forms of acute ischemic heart disease; C92.10 Chronic myeloid leukemia, BCR/ABL-positive, not having achieved remission; E87.1 Hypo-osmolality and hyponatremia; D68.59 Other primary thrombophilia; R65.20 Severe sepsis without septic shock; Z20.828 Contact with and (suspected) exposure to other viral communicable diseases; E11.22 Type 2 diabetes mellitus with diabetic chronic kidney disease; K21.9 Gastro-esophageal reflux disease without esophagitis; E03.9 Hypothyroidism, unspecified; E11.65 Type 2 diabetes mellitus with hyperglycemia; E66.3 Overweight; F41.1 Generalized anxiety disorder; R09.02 Hypoxemia; E83.39 Other disorders of phosphorus metabolism; F03.90 Unspecified dementia, unspecified severity, without behavioral disturbance, psychotic disturbance, mood disturbance, and anxiety; N18.9 Chronic kidney disease, unspecified; I12.9 Hypertensive chronic kidney disease with stage 1 through stage 4 chronic kidney disease, or unspecified chronic kidney disease; Z88.6 Allergy status to analgesic agent; Z87.442 Personal history of urinary calculi; Z90.49 Acquired absence of other specified parts of digestive tract; Z98.51 Tubal ligation status; Z83.3 Family history of diabetes mellitus; Z80.0 Family history of malignant neoplasm of digestive organs; Z86.73 Personal history of transient ischemic attack (TIA), and cerebral infarction without residual deficits; Z68.28 Body mass index [BMI] 28.0-28.9, adult; Z79.899 Other long term (current) drug therapy

== ENCOUNTER → 2021-03-11 | Outpatient (CLI) | payer OTHER ==
[~2021-03-11] MED LIST changes: +AZITHROMYCIN500 M2 PO; +BUMETANIDE1 MG PO; +BUSPAR5 MG PO; +DONEPEZIL HCL10 MG PO; +LEVOFLOXACIN500 MG PO; +LOSARTAN-HCTZ1 EAC2 PO
[2021-03-11 10:39] LABS: BASO % 0.8 % (0.0-1.0); EOS # 0.2 10*3/uL (0.0-0.4); EOS % 4.3 % (1.0-4.0); HEMATOCRIT 35.7 % (37.0-47.0); LYMPH # 2.5 10*3/uL (1.3-4.4); LYMPH % 48.5 % (27.0-41.0); MEAN CORPUSCULAR HGB 27.9 pg (27.0-31.0); MEAN CORPUSCULAR HGB CONC 32.8 g/dl (33.0-37.0); MEAN PLATELET VOLUME 10.7 fl (9.6-12.3); MONO # 0.5 10*3/uL (0.1-1.0); MONO % 8.9 % (3.0-9.0); NEUT # 1.9 10*3/uL (2.3-7.9); NEUT % 37.3 % (47.0-73.0); PLATELET COUNT AUTOMATED 269 10*3/uL (130-400); RED CELL DISTRI WIDTH 13.5 % (0-14.5); WHITE BLOOD COUNT 5.2 10*3/uL (4.8-10.8)
[2021-03-11 10:51] LABS: ALBUMIN 2.9 gm/dl (3.1-4.5); CREATININE 1.14 mg/dL (0.55-1.02); POTASSIUM 4.1 mmol/L (3.5-5.1); TOTAL PROTEIN 6.3 gm/dL (6.4-8.2)
[2021-03-11 10:58] LABS: FREE T4 1.05 ng/dl (0.76-1.46); THYROID STIM HORMONE (HS) 0.895 uIU/ml (0.358-4.75)
[2021-03-11 10:59] LABS: FERRITIN 55.9 ng/mL (10.0-291.0); VITAMIN D, 25-HYDROXY 32.3 ng/mL (30-100)
[2021-03-12 04:06] LABS: LDL CHOLESTEROL (DIRECT) 120 mg/dL (0-99)
[2021-03-12 10:08] LABS: CREATININE,URINE 78.4 mg/dL (Not Estab.)
== END | disposition home or self-care (01) ==
LOC: LAB 10:23
PROVIDERS: ATTEND Nurse Practitioner
DX: E11.65 Type 2 diabetes mellitus with hyperglycemia (principal); E55.9 Vitamin D deficiency, unspecified; D64.9 Anemia, unspecified; E78.2 Mixed hyperlipidemia; E03.9 Hypothyroidism, unspecified

== ENCOUNTER → 2021-06-25 | Outpatient (CLI) | payer OTHER ==
[2021-06-25 11:30] LABS: ALBUMIN 3.3 gm/dl (3.1-4.5); CREATININE 1.13 mg/dL (0.55-1.02); FREE T4 1.35 ng/dl (0.76-1.46); POTASSIUM 3.7 mmol/L (3.5-5.1); TOTAL PROTEIN 7.1 gm/dL (6.4-8.2)
[2021-06-25 11:35] LABS: THYROID STIM HORMONE (HS) 0.647 uIU/ml (0.358-4.75)
[2021-06-26 04:06] LABS: LDL CHOLESTEROL (DIRECT) 148 mg/dL (0-99)
[2021-06-26 10:07] LABS: CREATININE,URINE 110.7 mg/dL (Not Estab.)
== END | disposition home or self-care (01) ==
LOC: LAB 10:23
PROVIDERS: ATTEND Nurse Practitioner
DX: E11.65 Type 2 diabetes mellitus with hyperglycemia (principal); E03.9 Hypothyroidism, unspecified; E78.2 Mixed hyperlipidemia

== ENCOUNTER → 2021-09-21 | Outpatient (CLI) | payer OTHER ==
[2021-09-21 16:56] LABS: BILIRUBIN Negative (Negative); BLOOD Negative (Negative); CLARITY Turbid (Clear); COLOR Yellow (Yellow); GLUCOSE Negative (Negative); KETONE Negative (Negative); LEUKO ESTERASE Negative (Negative); NITRITE Negative (Negative); SPECIFIC GRAVITY 1.015 (1.001-1.030); UROBILINOGEN 0.2 E.U./dl (0.0-1.0)
[2021-09-21 17:15] LABS: BACTERIA 2+; HYALINE CAST 0-2
[2021-09-21 17:16] LABS: EPITHELIAL CELLS 0-2; WBC 0-2 wbc/hpf (0-5)
== END | disposition home or self-care (01) ==
LOC: LAB 15:56
PROVIDERS: ATTEND Family Medicine
DX: R30.0 Dysuria (principal)

== ENCOUNTER → 2022-02-28 | Outpatient (CLI) | payer OTHER ==
[2022-02-28 11:45] LABS: CREATININE 1.13 mg/dL (0.55-1.02); POTASSIUM 4.4 mmol/L (3.5-5.1); TOTAL PROTEIN 6.5 gm/dL (6.4-8.2)
[2022-02-28 11:47] LABS: FREE T4 1.2 ng/dl (0.76-1.46)
[2022-02-28 11:51] LABS: THYROID STIM HORMONE (HS) 1.52 uIU/ml (0.358-4.75)
[2022-03-01 11:07] LABS: CREATININE,URINE 120.4 mg/dL (Not Estab.)
== END | disposition home or self-care (01) ==
LOC: LAB 10:45
PROVIDERS: ATTEND Nurse Practitioner
DX: E11.65 Type 2 diabetes mellitus with hyperglycemia (principal); E78.2 Mixed hyperlipidemia; E03.9 Hypothyroidism, unspecified

== ENCOUNTER → 2022-06-02 | Outpatient (CLI) | payer OTHER ==
[~2022-06-02] MED LIST changes: +AMLODIPINE-BEN1 EAC2 PO; +AUGMENTIN 875-875 MG PO; +MEMANTINE HCL10 MG PO; +MYRBETRIQ25 M1 PO; +ONE-DAILY MULT1 EAC1 PO; +OZEMPIC1 MG/0.71 SQ
[2022-06-02 11:08] LABS: CREATININE 1.38 mg/dL (0.55-1.02); FREE T4 1.22 ng/dl (0.76-1.46); POTASSIUM 4.3 mmol/L (3.5-5.1); TOTAL PROTEIN 6.8 gm/dL (6.4-8.2)
[2022-06-02 11:13] LABS: THYROID STIM HORMONE (HS) 2.53 uIU/ml (0.358-4.75)
[2022-06-03 05:06] LABS: LDL CHOLESTEROL (DIRECT) 96 mg/dL (0-99)
== END | disposition home or self-care (01) ==
LOC: LAB 10:23
PROVIDERS: ATTEND Nurse Practitioner
DX: E11.65 Type 2 diabetes mellitus with hyperglycemia (principal); E78.2 Mixed hyperlipidemia; E03.9 Hypothyroidism, unspecified

== ENCOUNTER → 2022-09-14 | Outpatient (CLI) | payer OTHER ==
[2022-09-14 11:42] LABS: BASO # 0.1 10*3/uL (0.0-0.1); BASO % 1.3 % (0.0-1.0); EOS # 0.1 10*3/uL (0.0-0.4); EOS % 2.7 % (1.0-4.0); HEMATOCRIT 36.1 % (37.0-47.0); LYMPH # 2.3 10*3/uL (1.3-4.4); MEAN CELL VOLUME 85.3 fl (81.0-99.0); MEAN CORPUSCULAR HGB 28.4 pg (27.0-31.0); MEAN CORPUSCULAR HGB CONC 33.2 g/dl (33.0-37.0); MEAN PLATELET VOLUME 10.7 fl (9.6-12.3); MONO # 0.4 10*3/uL (0.1-1.0); MONO % 8.4 % (3.0-9.0); NEUT # 1.8 10*3/uL (2.3-7.9); NEUT % 38.4 % (47.0-73.0); PLATELET COUNT AUTOMATED 219 10*3/uL (130-400); RED BLOOD COUNT 4.23 10*6/uL (4.10-5.10); RED CELL DISTRI WIDTH 13.7 % (0-14.5); WHITE BLOOD COUNT 4.8 10*3/uL (4.8-10.8)
[2022-09-14 11:50] LABS: URINE CREATININE RANDOM 67.3 mg/dL
[2022-09-14 12:00] LABS: CREATININE 1.4 mg/dL (0.55-1.02); POTASSIUM 4.2 mmol/L (3.5-5.1); TOTAL PROTEIN 6.7 gm/dL (6.4-8.2)
== END | disposition home or self-care (01) ==
LOC: LAB 10:59
PROVIDERS: Nurse Practitioner; ATTEND Internal Medicine Nephrology
DX: I12.9 Hypertensive chronic kidney disease with stage 1 through stage 4 chronic kidney disease, or unspecified chronic kidney disease (principal); E11.22 Type 2 diabetes mellitus with diabetic chronic kidney disease; N18.32 Chronic kidney disease, stage 3b; E11.65 Type 2 diabetes mellitus with hyperglycemia; E11.43 Type 2 diabetes mellitus with diabetic autonomic (poly)neuropathy; R80.9 Proteinuria, unspecified; R60.0 Localized edema; E78.2 Mixed hyperlipidemia; E03.9 Hypothyroidism, unspecified

== ENCOUNTER → 2022-09-29 | Outpatient (CLI) | payer OTHER ==
[2022-09-29 13:19] LABS: BILIRUBIN Negative (Negative); BLOOD Negative (Negative); CLARITY Clear (Clear); COLOR Yellow (Yellow); GLUCOSE Negative (Negative); KETONE Negative (Negative); LEUKO ESTERASE Trace (Negative); NITRITE Positive (Negative)
[2022-09-29 13:34] LABS: BACTERIA 3+; EPITHELIAL CELLS 41-50
== END | disposition short-term general hospital (02) ==
LOC: LAB 12:58
PROVIDERS: ATTEND Family Medicine
DX: N39.0 Urinary tract infection, site not specified (principal)

== ENCOUNTER → 2022-10-26 | Outpatient (CLI) | payer OTHER ==
[2022-10-26 16:42] LABS: BILIRUBIN Negative (Negative); BLOOD Negative (Negative); CLARITY Clear (Clear); COLOR Yellow (Yellow); GLUCOSE Negative (Negative); KETONE Negative (Negative); LEUKO ESTERASE 2+ (Negative); NITRITE Positive (Negative)
[2022-10-26 17:17] LABS: BACTERIA 3+; HYALINE CAST 0-2; WBC 31-40 wbc/hpf (0-5)
== END | disposition home or self-care (01) ==
LOC: LAB 15:56
PROVIDERS: ATTEND Family Medicine
DX: N39.0 Urinary tract infection, site not specified (principal)

== ENCOUNTER → 2022-11-04 | Outpatient (CLI) | payer OTHER ==
[2022-11-04 14:14] LABS: BILIRUBIN Negative (Negative); BLOOD Negative (Negative); CLARITY Clear (Clear); COLOR Yellow (Yellow); GLUCOSE Trace (Negative); KETONE Negative (Negative); LEUKO ESTERASE 2+ (Negative); NITRITE Positive (Negative)
[2022-11-04 14:36] LABS: RBC 0-2 rbc/hpf (0-2)
[2022-11-04 14:38] LABS: BACTERIA TRACE
== END | disposition home or self-care (01) ==
LOC: LAB 13:53
PROVIDERS: ATTEND Family Medicine
DX: N39.0 Urinary tract infection, site not specified (principal)

== ENCOUNTER → 2023-01-20 | Outpatient (CLI) | payer OTHER ==
[2023-01-20 10:51] LABS: BASO # 0.1 10*3/uL (0.0-0.1); EOS # 0.1 10*3/uL (0.0-0.4); EOS % 1.5 % (1.0-4.0); HEMATOCRIT 39.7 % (37.0-47.0); LYMPH # 2.8 10*3/uL (1.3-4.4); LYMPH % 46.4 % (27.0-41.0); MEAN CELL VOLUME 83.8 fl (81.0-99.0); MEAN CORPUSCULAR HGB 28.5 pg (27.0-31.0); MEAN PLATELET VOLUME 10.9 fl (9.6-12.3); MONO # 0.5 10*3/uL (0.1-1.0); NEUT # 2.5 10*3/uL (2.3-7.9); NEUT % 41.9 % (47.0-73.0); PLATELET COUNT AUTOMATED 290 10*3/uL (130-400); RED BLOOD COUNT 4.74 10*6/uL (4.10-5.10); RED CELL DISTRI WIDTH 13.5 % (0-14.5)
[2023-01-20 10:56] LABS: URINE CREATININE RANDOM 77.89 mg/dL
[2023-01-20 11:54] LABS: POTASSIUM 3.9 mmol/L (3.4-5.1); TOTAL PROTEIN 6.7 gm/dL (6.0-8.0); URIC ACID 6.9 mg/dL (3.1-7.8)
[2023-01-20 11:57] LABS: FREE T4 1.25 ng/dl (0.89-1.76); THYROID STIM HORMONE (HS) 1.47 uIU/ml (0.550-4.780)
== END | disposition home or self-care (01) ==
LOC: LAB 10:19
PROVIDERS: ATTEND Nurse Practitioner
DX: I12.9 Hypertensive chronic kidney disease with stage 1 through stage 4 chronic kidney disease, or unspecified chronic kidney disease (principal); E11.22 Type 2 diabetes mellitus with diabetic chronic kidney disease; N18.32 Chronic kidney disease, stage 3b; E11.65 Type 2 diabetes mellitus with hyperglycemia; E11.43 Type 2 diabetes mellitus with diabetic autonomic (poly)neuropathy; E78.2 Mixed hyperlipidemia; E03.9 Hypothyroidism, unspecified

== ENCOUNTER 2023-03-07 15:21 | Emergency (ER) | payer OTHER ==
[~2023-03-07] VITALS: Ht 160 cm; Wt 70.3 kg
== END 2023-03-07 18:24 | disposition home or self-care (01) ==
LOC: ED 15:21
DX: S83.92XA Sprain of unspecified site of left knee, initial encounter (principal); S70.02XA Contusion of left hip, initial encounter; S30.0XXA Contusion of lower back and pelvis, initial encounter; I50.9 Heart failure, unspecified; I11.0 Hypertensive heart disease with heart failure; E11.9 Type 2 diabetes mellitus without complications; K21.9 Gastro-esophageal reflux disease without esophagitis; Z87.442 Personal history of urinary calculi; Z91.041 Radiographic dye allergy status; Z88.5 Allergy status to narcotic agent; Z90.49 Acquired absence of other specified parts of digestive tract; Z98.51 Tubal ligation status; Z98.890 Other specified postprocedural states; Z90.11 Acquired absence of right breast and nipple; W19.XXXA Unspecified fall, initial encounter; Y93.89 Activity, other specified; Y92.89 Other specified places as the place of occurrence of the external cause; Y99.8 Other external cause status